=== PATIENT | female | born 1965 | race African-American/Black ===

== ENCOUNTER 2018-09-16 12:07 | Emergency (ER) | payer MEDICAID, OTHER ==
[~2018-09-16] VITALS: Ht 180.3 cm; Wt 115.0 kg
[2018-09-16 12:12] VITALS: BP 126/75; PULSE 81; RESP 18; Ht 180.3 cm; Wt 115.0 kg
[2018-09-16] MEDS ORDERED: FAMOTIDINE 20 MG TAB PO STA (12:28)
[2018-09-16] MEDS ORDERED: DIPHENHYDRAMINE 50 MG CAP PO STA (12:28)
[2018-09-16] MEDS ORDERED: DEXAMETHASONE 10 MG/ML 1 ML INJ IM ONE (12:30)
[2018-09-16] MEDS ORDERED: MED4DP PO (12:44)
[2018-09-16] MEDS ORDERED: BEN50 PO (12:44)
--- NOTE | 2018-09-16 12:48 | ERD ---
ER Documentation Chief Complaint Chief Complaint B/L EYE SWELLING , REDNESS ITCHING ON FACE X 2 DAYS HPI This is a 53-year-old female with a past medical history of asthma. The patient presents to the emergency department complaining of redness around both of her eyes and swelling for the past 2 days. The patient states she is had this happen before and is prone to allergic reactions. She states the rash is itchy. She denies any swelling of her lips or tongue and has no difficulty breathing. The rash has not spread to the rest of her body. She indicates when this occurs she receives a steroid injection which improves her symptoms. ROS All systems reviewed and are negative except as per history of present illness. Medications Home Meds Active Scripts Methylprednisolone* (Medrol* DOSE PACK) 4 Mg/Dose-Pack Tab.ds.pk, 4 MG PO . DIRECTED, #1 PACKET Prov:DEANNA CHASE MD 09/16/18 Diphenhydramine Hcl* (Benadryl*) 50 Mg Cap, 50 MG PO Q6H PRN for ITCHING/RASH, #30 CAP Prov:DEANNA CHASE MD 09/16/18 Allergies Allergies: Coded Allergies: aspirin (Verified Allergy, Severe, swollen face, 09/16/18) PMhx/Soc Medical and Surgical Hx: pt denies Medical Hx, pt denies Surgical Hx Hx Alcohol Use: No Hx Substance Use: No Hx Tobacco Use: No Smoking Status: Never smoker Physical Exam Vitals Vital Signs Date Temp Pulse Resp B/P (MAP) Pulse Ox O2 O2 Flow FiO2 Time Delivery Rate 09/16/18 98.1 81 18 126/75 98 12:12 (92) Physical Exam Constitutional:Well-developed. Well-nourished. HEENT:Normocephalic. Atraumatic.Pupils were equal round reactive to light. Moist mucous membranes.No tonsillar exudates. Periorbital erythremia. No angioedema. No macroglossia. Respiratory: Not using accessory muscles of respiration.Lungs were clear to auscultation bilaterally. No rhonchi. No rales. No wheezing. Cardiovascular: Regular rate regular rhythm.No murmurs. No rubs were appreciated.S1, S2 normal. Distal pulses are palpable 2+ bilaterally. Skin: No petechia, no purpura. No lesions on the palms or the soles of the feet. No maculopapular rash. Results 24 hrs Current Medications Medications Dose Sig/[place] Start Time Status Last (Trade) Ordered Route PRN Stop Time Admin Dose Reason Admin 50 mg ONCE STAT 09/16/18 DC Diphenhydrami PO 12:28 ne HCl 09/16/18 12:36 (Benadryl) Famotidine 20 mg ONCE STAT 09/16/18 DC (Pepcid) PO 12:28 09/16/18 12:36 10 mg ONCE ONCE 09/16/18 DC Dexamethasone IM 12:30 (Decadron) 09/16/18 12:36 Procedures/MDM This patient presented to the emergency department with physical exam findings that were suggestive of a mild allergic reaction. The patient was given a Decadron injection as well as Benadryl. There is no evidence of angioedema and airway was intact. The patient was discharged home in fair condition. They were instructed to return to the emergency department at any time if there was any worsening of their condition. The patient stated they would follow up with their PCP in the next 24-48 hours to initiate a suitable medication regimen under the care of their PCP as well as to allow their PCP to monitor any drug reactions. The patient was discharged home with prescriptions after they gave informed consent to the new medication. They were also fully informed by myself on the adverse effects and adverse drug interactions in order to provide adequate safeguards to prevent possible adverse reactions to medications. Departure Diagnosis: Primary Impression: Allergic reaction Encounter type: initial encounter Qualified Codes: T78.40XA - Allergy, unspecified, initial encounter Condition: Fair Patient Instructions: Allergic Reaction, Other (Local) DEANNA CHASE MD Sep 16, 2018 12:48
== END 2018-09-16 12:56 | disposition home or self-care (01) ==
LOC: FTE 12:07
DX: H02.846 Edema of left eye, unspecified eyelid (principal); H02.843 Edema of right eye, unspecified eyelid; J45.909 Unspecified asthma, uncomplicated
CPT/HCPCS: J1100; Z7610; 96372